=== PATIENT | male | born 1960 | race Caucasian/White ===

== ENCOUNTER 2022-11-19 18:11 | Emergency (ER) | payer MEDICARE, SELFPAY ==
[2022-11-19] VITALS (14 sets, daily range): BP systolic 105–160; BP diastolic 72–88; PULSE 79–100; RESP 17–38; TEMP 36.8; O2SAT 89–99; BMI 27.2
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
--- NOTE | 2022-11-19 18:18 | ECG_ITS ---
[facility] Test Date: 2022-11-19 Pat Name: Douglas Wheeler Department: Room: Gender: Male [employer]el Se[employer] Machine: : [id number] Requested By: Ewa Jacobo Order Number: [id number] Ju[place] MD: Anatoly Iraheta M.D. Measurements Intervals [place] Rate: P: 0 NM: 0 QRS: 0 QRSD: 0 T: 0 QT: 0 QTc: 0 Interpretive Statements SINUS TACHYCARDIA No previous ECG available for comparison Electronically Signed On 11-20-2022 10:27:45 FAMILY SERVICES ASSISTANT by Anatoly Iraheta M.D. [id number]
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
[2022-11-19 18:46] LABS: Arterial Blood Gas Hematocrit 48.6 % (42-52); Base Excess ABG -1.2 mmol/L (-2.0-2.0); Blood Gas Allen Test Pos; Blood Gas Sample Site Radial, left; Blood Gas Sample Type Arterial; Carboxyhemoglobin 2.1 %THgb (0.4-20.1); HCO3 ABG 17.6 mmol/L (22-26); HGB O2 Sat 97.6 % (95-100); Methemoglobin 0.3 % (0.4-1.5); Oxygen Device SIMPLE MASK; Total Hemoglobin 15.9 g/dL (14-18)
[2022-11-19 18:56] LABS: Alanine Aminotransferase 37 U/L (0-41); Albumin Level 4.5 g/dL (3.5-5.2); Alkaline Phosphatase 65 U/L (40-130); Anion Gap 28.2 (5-19); Aspartate Amino Transferase 32 U/L (0-40); Blood Urea Nitrogen 29 mg/dL (8-23); Calcium 10.3 mg/dL (8.5-10.5); Carbon Dioxide 17 mmol/L (22-29); Chloride 99 mmol/L (98-107); Globulin 3.6 g/dL (1.3-4.6); Glomerular Filtration Rate 40.8 mL/min (90-130); Glucose 142 mg/dL (65-115); Osmolality Calculated 298 mOsm/kg (285-295); Potassium 4.2 mmol/L (3.5-5.1); Sodium 140 mmol/L (136-145); Total Bilirubin 0.8 mg/dL (0.15-1.2); Total Protein 8.1 g/dL (6.6-8.7)
[2022-11-19 18:58] LABS: Basophils # 0.1 10^3/uL (0.0-0.1); Basophils % 0.3 %; Hematocrit 44.2 % (42.0-52.0); Hemoglobin 15.1 g/dL (11.7-16.6); Lymphocytes # 1.6 10^3/uL (0.8-4.8); Lymphocytes % 7.6 %; Mean Corpuscular HGB Conc 34.2 g/dL (30.0-36.0); Mean Corpuscular Hemoglobin 30.1 pg (28.0-34.0); Mean Platelet Volume 11.7 fL (7.4-10.4); Monocytes # 0.8 10^3/uL (0.2-0.9); Monocytes % 3.7 %; Neutrophils # 18.07 10^3/uL (1.8-7.7); Neutrophils % 87.9 %; Nucleated Red Blood Cells % 0 %; Platelet Count 273 10^3/cmm (130-400); Red Blood Count 5.02 10^6/uL (4.1-5.3); Red Cell Distribution Width 11.9 % (12.1-15.1); White Blood Count 20.5 10^3/uL (4.0-10.0)
[2022-11-19] MEDS: sodium chloride 0.9% 1,000 ML 999 ML IV (21:37)
[2022-11-19] MEDS: ketorolac 30 mg/mL INJ IVP (22:19)
[2022-11-20] VITALS: BP 143/87; PULSE 86; RESP 17; O2SAT 96
[2022-11-20 00:30] VITALS: BP 148/87; PULSE 87; RESP 12; O2SAT 93
[2022-11-20 01:00] VITALS: BP 148/75; PULSE 85; RESP 16; O2SAT 94
[2022-11-21 13:35] LABS: ABG PCO2 18.7 mmHg (35-45); ABG PH Result 7.58 (7.35-7.45)
== END 2022-11-20 02:04 | disposition home or self-care (01) ==
PROVIDERS: Emergency Provider Family Medicine
DX: T59.811A Toxic effect of smoke, accidental (unintentional), initial encounter (principal); X01.1XXA Exposure to smoke in uncontrolled fire, not in building or structure, initial encounter
CPT/HCPCS: 36600; 71045; 80053; 82805; 85025; 93005; 96361; 96374; 96375; 99285; J1885; J2930; J7030